=== PATIENT | male | born 1950 | race Caucasian/White ===

== ENCOUNTER 2023-09-29 06:44 | Inpatient (IN) | payer BC ==
[2023-09-29] VITALS (7 sets, daily range): BP systolic 110–149; PULSE 72–120; RESP 17–30; TEMP 98–98.9; O2SAT 86–93
[~2023-09-29] VITALS: Ht 185.4 cm; Wt 98.4 kg
[2023-09-29] MEDS: IPRATROPIUM/ALBUTEROL SULFATE 3 ML AMPUL.NEB (DUONEB) INH ONE (07:05)
[2023-09-29 07:07] LABS: BLOOD GAS BASE EXCESS -2.6 mmol/L (-3.0-3.0); BLOOD GAS HCO3 20.8 mmol/L (21.0-27.0); BLOOD GAS PCO2 32.5 mmHg (32.0-45.0); BLOOD GAS PH 7.424 (7.350-7.450)
[2023-09-29 07:09] LABS: ABG O2 SAT% ESTIMATE 87.3 % (94.0-100.0); BLOOD GAS PO2 50.9 mmHg (75.0-100.0)
[2023-09-29 07:10] LABS: ALLEN'S TEST POSITIVE (P)
[2023-09-29 07:22] LABS: BASOPHILS # (AUTO) 0.1 K/uL (0.0-0.2); BASOPHILS % (AUTO) 1.3 % (0.0-2.0); EOSINOPHILS # (AUTO) 1.3 K/uL (0.0-0.4); EOSINOPHILS % (AUTO) 13.9 % (0.0-4.0); HEMATOCRIT 50.1 % (36-54); HEMOGLOBIN 17.2 g/dL (14.0-18.0); LYMPHOCYTES # (AUTO) 2.8 K/uL (1.0-5.5); LYMPHOCYTES % (AUTO) 29.2 % (20.5-51.5); MEAN CORPUSCULAR HEMOGLOBIN 33 pg (27-31); MEAN CORPUSCULAR HGB CONC 34 % (32-36); MEAN CORPUSCULAR VOLUME 95 fL (79.0-98.0); MONOCYTES # (AUTO) 0.9 K/uL (0.0-1.0); MONOCYTES % (AUTO) 9.9 % (1.7-9.3); NEUTROPHILS # (AUTO) 4.4 K/uL (1.8-7.7); NEUTROPHILS % (AUTO) 45.7 % (40.0-70.0); PLATELET COUNT (AUTO) 267 K/uL (130-430); RED BLOOD CELL COUNT(AUTO) 5.28 MIL/uL (4.2-6.2); RED CELL DISTRIBUTION WIDTH 12.5 % (9.0-15.0); WHITE BLOOD COUNT (AUTO) 9.5 K/uL (4.8-10.8)
[2023-09-29 08:15] LABS: ALANINE AMINOTRANSFERASE 40 U/L (12-78); ALBUMIN 3.7 g/dL (3.4-4.8); ASPARTATE AMINOTRANSFERASE 26 U/L (10-37); BILIRUBIN,DIRECT 0.3 mg/dL (0.0-0.3); CHLORIDE 106 mmol/L (98-107); CREATININE 1.03 mg/dL (0.55-1.30); GLUCOSE 137 mg/dL (74-106); POTASSIUM 3.8 mmol/L (3.5-5.1); SODIUM SERUM 143 mmol/L (136-145); TOTAL BILIRUBIN 1.3 mg/dL (0.0-1.0); TOTAL PROTEIN, SERUM 7.9 g/dL (6.4-8.3); UREA NITROGEN, BLOOD 12 mg/dL (8-21)
[2023-09-29 08:27] LABS: ANION GAP 12 (5-15); CARBON DIOXIDE 25 mmol/L (23-29)
[2023-09-29 10:22] LABS: INFLUENZA TYPE A Negative (NEGATIVE); INFLUENZA TYPE B NEGATIVE (NEGATIVE)
[2023-09-29] MEDS ORDERED: ATOR20TA64 PO (10:22)
[2023-09-29] MEDS ORDERED: AZITHROMYCIN 500 MG/VIAL (ZITHROMAX) IV ONE (16:04)
[2023-09-29] MEDS ORDERED: cefTRIAXone 1 GM VIAL ONE (16:05)
[2023-09-29] MEDS: cefTRIAXone 1 GM in D5W 50 ML IV ONE (16:14)
[2023-09-29] MEDS: methylPREDNISolone SOD SUCC/PF 62.5 MG/ML VIAL IVP ONE (16:14)
[2023-09-29] MEDS: AZITHROMYCIN 500 MG in NS 250 ML IV ONE (16:23)
[2023-09-29] MEDS ORDERED: ONDANSETRON HCL 4 MG/2 ML VIAL IVP PRN (17:30)
[2023-09-29] MEDS ORDERED: HYDROcodone/ACETAMIN 10-325 MG TAB PO PRN (17:30)
[2023-09-29] MEDS ORDERED: HYDROcodone/ACETAMIN 5-325 MG TAB (NORCO/ VICODIN) PO PRN (17:30)
[2023-09-29] MEDS ORDERED: ACETAMINOPHEN 325 MG TABLET PO PRN (17:30)
[2023-09-29] MEDS ORDERED: NALOXONE HCL 0.4 MG/ML AMP (NARCAN) IVP PRN ×2 (17:30)
[2023-09-29] MEDS ORDERED: IPRATROPIUM/ALBUTEROL SULFATE 3 ML AMPUL.NEB (DUONEB) INH PRN (17:45)
[2023-09-29] MEDS: ALBUTEROL SULFATE 0.083% 2.5 MG/3 ML VIAL.NEB INH SCH (20:12)
[2023-09-29] MEDS: IPRATROPIUM BROM 0.5 MG/2.5 ML VIAL.NEB (ATROVENT) INH SCH (20:12)
[2023-09-29] MEDS: ATORVASTATIN 20 MG TABLET PO SCH (21:23)
[2023-09-29] MEDS: methylPREDNISolone SOD SUCC/PF 62.5 MG/ML VIAL IVP SCH (21:24)
[2023-09-29] MEDS: NORMAL SALINE 5 ML DISP.SYRIN IVF SCH (21:24)
[2023-09-30] VITALS (12 sets, daily range): BP systolic 104–123; PULSE 89–127; RESP 16–20; TEMP 97.5–99.1; O2SAT 86–96
[2023-09-30 05:31] LABS: BASOPHILS % (AUTO) 0.1 % (0.0-2.0); EOSINOPHILS % (AUTO) 0.1 % (0.0-4.0); HEMOGLOBIN 16.2 g/dL (14.0-18.0); LYMPHOCYTES # (AUTO) 0.5 K/uL (1.0-5.5); LYMPHOCYTES % (AUTO) 9.6 % (20.5-51.5); MEAN CORPUSCULAR HEMOGLOBIN 33 pg (27-31); MEAN CORPUSCULAR HGB CONC 34 % (32-36); MEAN CORPUSCULAR VOLUME 95 fL (79.0-98.0); MONOCYTES # (AUTO) 0.1 K/uL (0.0-1.0); MONOCYTES % (AUTO) 1.4 % (1.7-9.3); NEUTROPHILS # (AUTO) 4.9 K/uL (1.8-7.7); NEUTROPHILS % (AUTO) 88.8 % (40.0-70.0); PLATELET COUNT (AUTO) 240 K/uL (130-430); RED BLOOD CELL COUNT(AUTO) 4.96 MIL/uL (4.2-6.2); RED CELL DISTRIBUTION WIDTH 12.4 % (9.0-15.0); WHITE BLOOD COUNT (AUTO) 5.5 K/uL (4.8-10.8)
[2023-09-30 06:22] LABS: ALANINE AMINOTRANSFERASE 38 U/L (12-78); ALBUMIN 3.6 g/dL (3.4-4.8); ANION GAP 19 (5-15); ASPARTATE AMINOTRANSFERASE 20 U/L (10-37); CALCIUM 8.7 mg/dL (8.4-11.0); CARBON DIOXIDE 19 mmol/L (23-29); CHLORIDE 104 mmol/L (98-107); CREATININE 1.37 mg/dL (0.55-1.30); GLUCOSE 233 mg/dL (74-106); POTASSIUM 3.7 mmol/L (3.5-5.1); SODIUM SERUM 142 mmol/L (136-145); TOTAL BILIRUBIN 0.7 mg/dL (0.0-1.0); TOTAL PROTEIN, SERUM 7.9 g/dL (6.4-8.3); UREA NITROGEN, BLOOD 15 mg/dL (8-21)
[2023-09-30] MEDS: cefTRIAXone 1 GM in D5W 50 ML IV SCH (09:42)
[2023-09-30] MEDS: AZITHROMYCIN 500 MG in NS 250 ML IV SCH (10:33)
[2023-09-30] MEDS: ACETAMINOPHEN 325 MG TABLET PO PRN (21:01)
[2023-10-01] VITALS (12 sets, daily range): BP systolic 121–141; PULSE 111–124; RESP 17–20; TEMP 96.5–98.4; O2SAT 87–98
[2023-10-01 06:06] LABS: HEMATOCRIT 46.2 % (36-54); HEMOGLOBIN 15.4 g/dL (14.0-18.0); MEAN CORPUSCULAR HEMOGLOBIN 32 pg (27-31); MEAN CORPUSCULAR HGB CONC 33 % (32-36); MEAN CORPUSCULAR VOLUME 96 fL (79.0-98.0); PLATELET COUNT (AUTO) 261 K/uL (130-430); RED BLOOD CELL COUNT(AUTO) 4.81 MIL/uL (4.2-6.2); RED CELL DISTRIBUTION WIDTH 12.6 % (9.0-15.0); WHITE BLOOD COUNT (AUTO) 16.7 K/uL (4.8-10.8)
[2023-10-01 06:12] LABS: ANION GAP 18 (5-15); CALCIUM 9.5 mg/dL (8.4-11.0); CARBON DIOXIDE 21 mmol/L (23-29); CHLORIDE 102 mmol/L (98-107); CREATININE 1.49 mg/dL (0.55-1.30); GLUCOSE 213 mg/dL (74-106); POTASSIUM 4.3 mmol/L (3.5-5.1); SODIUM SERUM 141 mmol/L (136-145); UREA NITROGEN, BLOOD 21 mg/dL (8-21)
[2023-10-01 08:51] LABS: BASOPHILS % (MANUAL) 0 % (0-2); EOSINOPHILS % (MANUAL) 0 % (0-7); LYMPHOCYTES % (MANUAL) 7 % (20-46); MONOCYTES % (MANUAL) 3 % (0-11); PLATELET ESTIMATE ADEQUATE (ADEQUATE)
[2023-10-01 09:02] LABS: ERYTHROCYTE SEDIMENTATION RATE 26 MM/HR (0-15)
[2023-10-01] MEDS: NACL 0.9% 1,000 ML IV SCH (18:28)
[2023-10-02 02:00] VITALS: BP_SYST 160; PULSE 103; RESP 20; TEMP 96.8; O2SAT 94
[2023-10-02 04:09] VITALS: O2SAT 93
[2023-10-02 05:36] LABS: BASOPHILS % (AUTO) 0.1 % (0.0-2.0); HEMATOCRIT 44.2 % (36-54); HEMOGLOBIN 14.8 g/dL (14.0-18.0); LYMPHOCYTES # (AUTO) 0.7 K/uL (1.0-5.5); LYMPHOCYTES % (AUTO) 5.7 % (20.5-51.5); MEAN CORPUSCULAR HEMOGLOBIN 32 pg (27-31); MEAN CORPUSCULAR HGB CONC 34 % (32-36); MEAN CORPUSCULAR VOLUME 95 fL (79.0-98.0); MONOCYTES # (AUTO) 0.3 K/uL (0.0-1.0); MONOCYTES % (AUTO) 2.6 % (1.7-9.3); NEUTROPHILS # (AUTO) 10.8 K/uL (1.8-7.7); NEUTROPHILS % (AUTO) 91.6 % (40.0-70.0); PLATELET COUNT (AUTO) 217 K/uL (130-430); RED BLOOD CELL COUNT(AUTO) 4.64 MIL/uL (4.2-6.2); RED CELL DISTRIBUTION WIDTH 12.7 % (9.0-15.0); WHITE BLOOD COUNT (AUTO) 11.8 K/uL (4.8-10.8)
[2023-10-02 05:42] LABS: ERYTHROCYTE SEDIMENTATION RATE 14 MM/HR (0-15)
[2023-10-02 06:04] LABS: ALANINE AMINOTRANSFERASE 32 U/L (12-78); ALBUMIN 3.2 g/dL (3.4-4.8); ANION GAP 15 (5-15); ASPARTATE AMINOTRANSFERASE 27 U/L (10-37); CALCIUM 9.1 mg/dL (8.4-11.0); CARBON DIOXIDE 23 mmol/L (23-29); CHLORIDE 104 mmol/L (98-107); CREATININE 1.03 mg/dL (0.55-1.30); GLUCOSE 173 mg/dL (74-106); POTASSIUM 4.5 mmol/L (3.5-5.1); SODIUM SERUM 142 mmol/L (136-145); TOTAL BILIRUBIN 0.4 mg/dL (0.0-1.0); TOTAL PROTEIN, SERUM 6.9 g/dL (6.4-8.3); UREA NITROGEN, BLOOD 21 mg/dL (8-21)
[2023-10-02 07:30] VITALS: O2SAT 94
[2023-10-02 08:00] VITALS: BP_SYST 126; PULSE 81; RESP 18; TEMP 96.8; O2SAT 96
[2023-10-02 08:30] VITALS: BP_SYST 160; PULSE 106; O2SAT 94
[2023-10-02] MEDS ORDERED: AUG875 PO (09:56)
[2023-10-02] MEDS ORDERED: METH-776 PO (09:56)
[2023-10-02 10:09] VITALS: BP_SYST 126; PULSE 82; RESP 18; TEMP 96.8; O2SAT 96
== END 2023-10-02 11:30 | disposition home or self-care (01) | DRG 189 ==
LOC: SED 06:44 → STU 09:41
PROVIDERS: ADMIT Preventive Medicine Preventive Medicine/Occupational Environmental Medicine; ATTEND Preventive Medicine Preventive Medicine/Occupational Environmental Medicine
DX: J96.01 Acute respiratory failure with hypoxia (principal); R65.11 Systemic inflammatory response syndrome (SIRS) of non-infectious origin with acute organ dysfunction; J45.901 Unspecified asthma with (acute) exacerbation; J20.9 Acute bronchitis, unspecified; J01.90 Acute sinusitis, unspecified; E78.5 Hyperlipidemia, unspecified; E88.09 Other disorders of plasma-protein metabolism, not elsewhere classified; E80.6 Other disorders of bilirubin metabolism; R73.9 Hyperglycemia, unspecified
CPT/HCPCS: 36415; 36600; 71045; 80048; 80053; 80076; 82803; 83880; 84484; 85007; 85025; 85027; 85379; 85651; 93005; 94640; 94760; 99291; G0378; J0456; J0696; J2930; J7050; J7060

== ENCOUNTER 2023-10-28 15:42 | Emergency (ER) | payer BC ==
[~2023-10-28] VITALS: Ht 185.4 cm; Wt 98.4 kg
[~2023-10-28 15:42] MED LIST: ATOR20TA64 PO; AUG875 PO; METH-776 PO
[2023-10-28 15:47] VITALS: BP_SYST 129; PULSE 124; RESP 18; TEMP 96.9; O2SAT 91
[2023-10-28] MEDS ORDERED: CEFU250T85 PO (16:09)
[2023-10-28] MEDS ORDERED: ALBMDI INH (16:09)
[2023-10-28] MEDS ORDERED: METH-776 PO (16:09)
[2023-10-28 18:38] VITALS: BP_SYST 131; PULSE 109; RESP 20; TEMP 97.3; O2SAT 92
== END 2023-10-28 16:26 | disposition home or self-care (01) ==
LOC: SED 15:42
DX: J44.1 Chronic obstructive pulmonary disease with (acute) exacerbation (principal); R06.02 Shortness of breath; R05.9 Cough, unspecified
CPT/HCPCS: 99283

== ENCOUNTER 2023-11-09 10:50 | Inpatient (IN) | payer BC ==
[~2023-11-09] VITALS: Ht 185.4 cm; Wt 97.3 kg
[2023-11-09 06:46] VITALS: O2SAT 90
[~2023-11-09 10:50] MED LIST changes: +ALBMDI INH; +CEFU250T85 PO
[2023-11-09 10:53] VITALS: BP_SYST 134; PULSE 110; O2SAT 93
[2023-11-09] MEDS: ALBUTEROL SULFATE 0.083% 2.5 MG/3 ML VIAL.NEB INH ONE (11:17)
[2023-11-09] MEDS: IPRATROPIUM BROM 0.5 MG/2.5 ML VIAL.NEB (ATROVENT) INH ONE (11:18)
[2023-11-09 11:19] LABS: BASOPHILS # (AUTO) 0.1 K/uL (0.0-0.2); BASOPHILS % (AUTO) 1.1 % (0.0-2.0); EOSINOPHILS # (AUTO) 2.7 K/uL (0.0-0.4); EOSINOPHILS % (AUTO) 20.6 % (0.0-4.0); HEMATOCRIT 46.7 % (36-54); LYMPHOCYTES # (AUTO) 2.9 K/uL (1.0-5.5); LYMPHOCYTES % (AUTO) 22.1 % (20.5-51.5); MEAN CORPUSCULAR HEMOGLOBIN 32 pg (27-31); MEAN CORPUSCULAR HGB CONC 34 % (32-36); MEAN CORPUSCULAR VOLUME 94 fL (79.0-98.0); MONOCYTES # (AUTO) 1.1 K/uL (0.0-1.0); MONOCYTES % (AUTO) 8.6 % (1.7-9.3); NEUTROPHILS # (AUTO) 6.2 K/uL (1.8-7.7); PLATELET COUNT (AUTO) 237 K/uL (130-430); RED BLOOD CELL COUNT(AUTO) 4.98 MIL/uL (4.2-6.2); RED CELL DISTRIBUTION WIDTH 13.4 % (9.0-15.0)
[2023-11-09 11:30] LABS: COVID19 ANTIGEN SOFIA FIA NEGATIVE (NEGATIVE)
[2023-11-09 11:32] LABS: INFLUENZA TYPE A Negative (NEGATIVE); INFLUENZA TYPE B NEGATIVE (NEGATIVE)
[2023-11-09 11:33] LABS: PROTHROMBIN TIME 10.7 SECS (9.5-12.5)
[2023-11-09 11:44] LABS: ALANINE AMINOTRANSFERASE 27 U/L (12-78); ALBUMIN 3.5 g/dL (3.4-4.8); ANION GAP 11 (5-15); ASPARTATE AMINOTRANSFERASE 12 U/L (10-37); BILIRUBIN,DIRECT 0.2 mg/dL (0.0-0.3); CALCIUM 9.3 mg/dL (8.4-11.0); CARBON DIOXIDE 28 mmol/L (23-29); CHLORIDE 104 mmol/L (98-107); CREATININE 1.06 mg/dL (0.55-1.30); GLUCOSE 152 mg/dL (74-106); POTASSIUM 4.2 mmol/L (3.5-5.1); SODIUM SERUM 143 mmol/L (136-145); TOTAL BILIRUBIN 1.2 mg/dL (0.0-1.0); TOTAL PROTEIN, SERUM 7.5 g/dL (6.4-8.3); UREA NITROGEN, BLOOD 7 mg/dL (8-21)
[2023-11-09 11:53] LABS: NEUTROPHILS % (AUTO) 47.6 % (40.0-70.0)
[2023-11-09] MEDS ORDERED: iohexoL 350 mgI/mL, 100 ML INFUS..BTL IV ONE (12:45)
[2023-11-09] MEDS: IPRATROPIUM/ALBUTEROL SULFATE 3 ML AMPUL.NEB (DUONEB) INH ONE (14:58)
[2023-11-09] MEDS ORDERED: LORazepam 2 MG/ML VIAL IVP PRN (15:30)
[2023-11-09] MEDS ORDERED: DOCUSATE SODIUM 100 MG CAPSULE PO PRN (15:30)
[2023-11-09] MEDS ORDERED: MORPHINE 2 MG/ML INJ. SYRINGE IVP PRN ×2 (15:30)
[2023-11-09] MEDS ORDERED: MUPIROCIN 2% TOPICAL OINTMENT 22 GM NS PRN (15:30)
[2023-11-09] MEDS ORDERED: MAGNESIUM SULFATE 50 ML IV PRN (15:30)
[2023-11-09] MEDS ORDERED: NALOXONE HCL 0.4 MG/ML AMP (NARCAN) IVP PRN ×2 (15:30)
[2023-11-09] MEDS ORDERED: ONDANSETRON HCL 4 MG/2 ML VIAL IVP PRN (15:30)
[2023-11-09] MEDS ORDERED: POTASSIUM CHLORIDE 20 MEQ TABLET.ER PO PRN (15:30)
[2023-11-09] MEDS ORDERED: ACETAMINOPHEN 500 MG TABLET PO PRN (15:45)
[2023-11-09 16:30] VITALS: BP_SYST 148; PULSE 122; O2SAT 93
[2023-11-09] MEDS: NACL 0.9% 1,000 ML IV SCH (16:39)
[2023-11-09 17:46] LABS: BILIRUBIN,URINE NEGATIVE (NEGATIVE); BLOOD, URINE NEGATIVE (NEGATIVE); CLARITY/URINE CLEAR (CLEAR); COLOR,URINE YELLOW (YELLOW); GLUCOSE,URINE NEGATIVE (NEGATIVE); KETONES,URINE NEGATIVE (NEGATIVE); LEUKOCYTE ESTERASE ,URINE NEGATIVE (NEGATIVE); NITRITE, URINE NEGATIVE (NEGATIVE); PROTEIN URINE TRACE (NEGATIVE); UROBILINOGEN,URINE 0.2 (0.2-1.0)
[2023-11-09 18:12] LABS: BACTERIA,URINE FEW /HPF (None Seen); MUCUS,URINE 1+ /LPF (None Seen); RBC,URINE 0-3 /HPF (0-3); WBC,URINE 0-3 /HPF (0-3)
[2023-11-09 19:05] VITALS: O2SAT 93
[2023-11-09] MEDS: IPRATROPIUM/ALBUTEROL SULFATE 3 ML AMPUL.NEB (DUONEB) INH PRN (19:05)
[2023-11-09] MEDS: HEPARIN SODIUM,PORCINE 5,000 UNITS/ML VIAL SUBCUT SCH (21:39)
[2023-11-09 22:40] VITALS: O2SAT 90
[2023-11-10] VITALS (13 sets, daily range): BP systolic 119–146; PULSE 89–109; RESP 20–22; TEMP 97–98.5; O2SAT 90–94
[2023-11-10] MEDS: ZOLPIDEM TARTRATE 5 MG TABLET PO PRN (03:58)
[2023-11-10 04:32] LABS: BASOPHILS # (AUTO) 0.1 K/uL (0.0-0.2); BASOPHILS % (AUTO) 1.2 % (0.0-2.0); EOSINOPHILS # (AUTO) 2.3 K/uL (0.0-0.4); EOSINOPHILS % (AUTO) 18.7 % (0.0-4.0); HEMATOCRIT 41.5 % (36-54); HEMOGLOBIN 14.2 g/dL (14.0-18.0); LYMPHOCYTES # (AUTO) 2.4 K/uL (1.0-5.5); LYMPHOCYTES % (AUTO) 19.7 % (20.5-51.5); MEAN CORPUSCULAR HEMOGLOBIN 32 pg (27-31); MEAN CORPUSCULAR HGB CONC 34 % (32-36); MEAN CORPUSCULAR VOLUME 93 fL (79.0-98.0); MONOCYTES # (AUTO) 1.1 K/uL (0.0-1.0); MONOCYTES % (AUTO) 8.8 % (1.7-9.3); NEUTROPHILS # (AUTO) 6.3 K/uL (1.8-7.7); NEUTROPHILS % (AUTO) 51.6 % (40.0-70.0); PLATELET COUNT (AUTO) 213 K/uL (130-430); RED BLOOD CELL COUNT(AUTO) 4.45 MIL/uL (4.2-6.2); RED CELL DISTRIBUTION WIDTH 13.5 % (9.0-15.0); WHITE BLOOD COUNT (AUTO) 12.2 K/uL (4.8-10.8)
[2023-11-10 04:59] LABS: ANION GAP 12 (5-15); CALCIUM 8.7 mg/dL (8.4-11.0); CARBON DIOXIDE 27 mmol/L (23-29); CHLORIDE 104 mmol/L (98-107); CREATININE 0.93 mg/dL (0.55-1.30); GLUCOSE 116 mg/dL (74-106); POTASSIUM 3.8 mmol/L (3.5-5.1); SODIUM SERUM 143 mmol/L (136-145); UREA NITROGEN, BLOOD 7 mg/dL (8-21)
[2023-11-10] MEDS: ATORVASTATIN 20 MG TABLET PO SCH (09:25)
[2023-11-10] MEDS: methylPREDNISolone SOD SUCC/PF 62.5 MG/ML VIAL IVP SCH (13:57)
[2023-11-10] MEDS: cefTRIAXone 1 GM in D5W 50 ML IV SCH (14:58)
[2023-11-10] MEDS: ACETAMINOPHEN 500 MG TABLET PO PRN (15:04)
[2023-11-10] MEDS: IPRATROPIUM/ALBUTEROL SULFATE 3 ML AMPUL.NEB (DUONEB) INH SCH (15:08)
[2023-11-11] VITALS (12 sets, daily range): BP systolic 102–149; PULSE 110–122; RESP 19–20; TEMP 97.1–98.4; O2SAT 91–98
[2023-11-11 06:01] LABS: BASOPHILS % (AUTO) 0.3 % (0.0-2.0); EOSINOPHILS % (AUTO) 0.2 % (0.0-4.0); HEMATOCRIT 44.1 % (36-54); HEMOGLOBIN 15.1 g/dL (14.0-18.0); LYMPHOCYTES # (AUTO) 0.8 K/uL (1.0-5.5); LYMPHOCYTES % (AUTO) 10.7 % (20.5-51.5); MEAN CORPUSCULAR HEMOGLOBIN 32 pg (27-31); MEAN CORPUSCULAR HGB CONC 34 % (32-36); MEAN CORPUSCULAR VOLUME 94 fL (79.0-98.0); MONOCYTES # (AUTO) 0.1 K/uL (0.0-1.0); MONOCYTES % (AUTO) 1.2 % (1.7-9.3); NEUTROPHILS # (AUTO) 6.8 K/uL (1.8-7.7); NEUTROPHILS % (AUTO) 87.6 % (40.0-70.0); PLATELET COUNT (AUTO) 239 K/uL (130-430); RED BLOOD CELL COUNT(AUTO) 4.69 MIL/uL (4.2-6.2); RED CELL DISTRIBUTION WIDTH 13.2 % (9.0-15.0); WHITE BLOOD COUNT (AUTO) 7.8 K/uL (4.8-10.8)
[2023-11-11 06:35] LABS: ANION GAP 15 (5-15); CALCIUM 9.4 mg/dL (8.4-11.0); CARBON DIOXIDE 24 mmol/L (23-29); CHLORIDE 104 mmol/L (98-107); CREATININE 0.94 mg/dL (0.55-1.30); GLUCOSE 153 mg/dL (74-106); POTASSIUM 3.8 mmol/L (3.5-5.1); SODIUM SERUM 143 mmol/L (136-145); UREA NITROGEN, BLOOD 7 mg/dL (8-21)
[2023-11-11] MEDS: OXYMETAZOLINE HCL 0.05% NASAL SPRAY NS PRN (10:09)
[2023-11-11] MEDS: ACETAMINOPHEN 500 MG TABLET PO PRN (18:40)
[2023-11-12] VITALS (14 sets, daily range): BP systolic 109–149; PULSE 99–105; RESP 16–19; TEMP 97–98.6; O2SAT 92–97
[2023-11-12 10:23] LABS: BLOOD GAS PCO2 33.9 mmHg (32.0-45.0); BLOOD GAS PH 7.444 (7.350-7.450)
[2023-11-12 10:24] LABS: ABG O2 SAT% ESTIMATE 92.6 % (94.0-100.0); ALLEN'S TEST POSITIVE (P); BLOOD GAS BASE EXCESS -0.6 mmol/L (-3.0-3.0); BLOOD GAS HCO3 22.7 mmol/L (21.0-27.0); BLOOD GAS PO2 67.2 mmHg (75.0-100.0)
[2023-11-12] MEDS: MONTELUKAST 10 MG TABLET PO SCH (22:14)
[2023-11-13] VITALS (10 sets, daily range): BP systolic 120–145; PULSE 82–105; RESP 16–18; TEMP 97–98.4; O2SAT 92–97
[2023-11-13] MEDS: LORATADINE 10 MG TABLET PO ONE (11:49)
[2023-11-13] MEDS ORDERED: MONT-40 PO (13:10)
[2023-11-13] MEDS ORDERED: ALBMDI INH (13:10)
[2023-11-13] MEDS ORDERED: LORA10TA7 PO (13:10)
[2023-11-13] MEDS ORDERED: ZOLP5TAB2 PO (13:10)
[2023-11-13] MEDS ORDERED: OXYM15MI9 NS (13:10)
[2023-11-13] MEDS ORDERED: PRED10TA PO (13:10)
[2023-11-13] MEDS ORDERED: LEVO750T64 PO (15:32)
[2023-11-14] MEDS ORDERED: LORATADINE 10 MG TABLET PO SCH (09:00)
== END 2023-11-13 16:50 | disposition home or self-care (01) | DRG 871 ==
LOC: SED 10:50 → STU 15:06
PROVIDERS: ADMIT General Practice; ATTEND General Practice
DX: A41.9 Sepsis, unspecified organism (principal); J96.01 Acute respiratory failure with hypoxia; N39.0 Urinary tract infection, site not specified; J44.1 Chronic obstructive pulmonary disease with (acute) exacerbation; E11.9 Type 2 diabetes mellitus without complications; Z20.822 Contact with and (suspected) exposure to COVID-19; J32.8 Other chronic sinusitis; K74.60 Unspecified cirrhosis of liver; Z79.899 Other long term (current) drug therapy; J32.9 Chronic sinusitis, unspecified
CPT/HCPCS: 36415; 36600; 70486-TC; 71045; 71270; 71275; 76705; 80048; 80076; 81000; 81001; 81015; 82803; 83037; 83605; 83735; 83880; 84484; 85025; 85610; 85730; 87040; 94640; 94760; 97116-GP; 97530-GP; 99285; G0378; J0696; J1644; J1956; J2930; J7060; Q9967